=== PATIENT | male | born 1950 | race African-American/Black ===

== ENCOUNTER 2017-08-24 06:33 | Day surgery (SDC) | payer MEDICARE, MEDICAID ==
[~2017-08-24] VITALS: Ht 172.7 cm; Wt 59.9 kg
[2017-08-24] VITALS (8 sets, daily range): BP systolic 136–158; BP diastolic 81–92
[~2017-08-24 06:33] MED LIST: DILANTIN100 MG ORAL; GABAPENTIN300 MG ORAL; IMITREX50 MG ORAL; PRILOSEC10 M1 ORAL; PSEUDOEPHEDRINE60 MG PO; TRAMADOL HCL50 MG ORAL
[2017-08-24] MEDS ORDERED: Lidocaine 1% 10mg/ml/Epi 0.005mg/ml 30ml vial INJ ONE (07:02)
[2017-08-24] MEDS ORDERED: ceFAZolin sod 2 GM in NS 55 ML IVPB ONE (07:15)
[2017-08-24] MEDS ORDERED: LR 1000ml 1,000 ML IVLG SCH (07:19)
--- NOTE | 2017-08-24 07:19 | Anethesia Preoperative Eval ---
Anesthesia Pre-op PMH/ROS General Date of Evaluation: Aug 24, 2017 Anesthesiologist: Kd ASA Score: ASA 2 Mallampati Score Class I : Soft palate, uvula, fauces, pillars visible Class II: Soft palate, uvula, fauces visible Class III: Soft palate, base of uvula visible Class IV: Only hard plate visible Mallampati Classification: Class II Surgeon: Saadia Diagnosis: Left little finger ganglion cyst Surgical Procedure: Left little finger ganglion cyst excision Anesthesia History: none Family History: no anesthesia problems Allergies: Coded Allergies: No Known Allergies (Unverified , 08/23/17) Medications: see eMAR Past Medical History Cardiovascular: Denies: HTN, CAD, ME, valve dz, arrhythmia, other Pulmonary: Denies: asthma, COPD, ZOHAIB, other Gastrointestinal/Genitourinary: Denies: GERD, CRI, ESRD, other Neurologic/Psychiatric: Reports: other - h/o seizures and migraines, Denies: dementia, CVA, depression/anxiety, TIA Endocrine: Denies: DM, hypothyroidism, steroids, other HEENT: Denies: cataract (L), cataract (R), glaucoma, CHILKOOT (L), CHILKOOT (R), other Hematology/Immune: Denies: anemia, DVT, bleeding disorder, other Musculoskeletal/Integumentary: Denies: OA, RA, DJD, DDD, edema, other PSxH Narrative: Denies Anesthesia Pre-op Phys. Exam Physician Exam Last Vital Signs Date Time Temp Pulse Resp B/P (MAP) Pulse Ox O2 Delivery O2 Flow Rate FiO2 08/24/17 06:57 97.2 62 18 148/83 95 Room Air Constitutional: NAD Cardiovascular: RRR Respiratory: CTA Airway Exam Mallampati Score: Class II MO: full ROM: full Teeth: intact Anesthesia Pre-op A/P Labs see chart Studies Pre-op Studies: EKG - sr Risk Assessment & Plan Assessment: ASA II Plan: MAC Status Change Before Surgery: No Pre-Antibiotics Drug: Ancef 1g Given Within 1 Hr of Incision: Yes Time Given: 07:35 KRISTEN EUCEDA M.D. Aug 24, 2017 07:19
--- NOTE | 2017-08-24 07:19 | Immediate Post-Op Evaluation ---
Immediate Post-Op Evalulation Immediate Post-Op Evalulation Procedure: Left little finger gangliion cyst excision Date of Evaluation: Aug 24, 2017 Time of Evaluation: 08:16 IV Fluids: 500 Blood Products: 0 Estimated Blood Loss: min Urinary Output: 0 Blood Pressure Systolic: 136 Blood Pressure Diastolic: 81 Pulse Rate: 68 Respiratory Rate: 16 O2 Sat by Pulse Oximetry: 100 Temperature (Fahrenheit): 98.6 Pain Score (1-10): 0 Nausea: No Vomiting: No Complications 0 Patient Status: awake, reacts, patent, none Hydration Status: adequate Drug: Ancef 1g Given Within 1 Hr of Incision: Yes Time Given: 07:35 KRISTEN EUCEDA M.D. Aug 24, 2017 07:19
[2017-08-24] MEDS ORDERED: Lidocaine 1% MPF 10mg/ml 5ml ONE (07:30)
[2017-08-24] MEDS ORDERED: Sterile Water Irrig 1000ml IRRIG ONE (07:30)
[2017-08-24] MEDS ORDERED: Ketorolac 30mg Inj IV PRN (07:30)
[2017-08-24] MEDS ORDERED: DiphenhydrAMINE 50mg/ml Inj IVP PRN (07:30)
[2017-08-24] MEDS ORDERED: fentaNYL 100 mcg/2 mL IV ONE (07:30)
[2017-08-24] MEDS ORDERED: Hydromorphone 0.5mg/0.5ml inj IVP PRN (07:30)
[2017-08-24] MEDS ORDERED: Midazolam 2mg/2ml Inj ONE (07:30)
[2017-08-24] MEDS ORDERED: NS Irrig 1000ml ONE (07:30)
[2017-08-24] MEDS ORDERED: Midazolam 2mg/2ml Inj IVP PRN (07:30)
[2017-08-24] MEDS ORDERED: LR 1000ml ONE (07:30)
[2017-08-24] MEDS ORDERED: fentaNYL 100 mcg/2 mL IV PRN (07:30)
[2017-08-24] MEDS ORDERED: Propofol 200mg/20ml IV ONE (07:30)
--- NOTE | 2017-08-24 07:34 | Pre-Procedure Note/Attestation ---
Pre-Procedure Note/Attestation Complete Prior to Procedure Planned Procedure: left Procedure Narrative: leftmiddle finger cyst excision Indications for Procedure Pre-Operative Diagnosis: left middle finger cyst Attestation I attest that I discussed the nature of the procedure; its benefits; risks and complications; and alternatives (and the risks and benefits of such alternatives ), prior to the procedure, with the patient (or the patient's legal brand representative). I attest that, if there was a reasonable possibility of needing a blood transfusion, the patient (or the patient's legal brand representative) was given the [facility] standardized written summary, pursuant to the [place] Blood Safety Act ([place] Health and Safety Code # 1645, as amended). I attest that I re-evaluated the patient just prior to the surgery and that there has been no change in the patient's H&P, except as documented below: Tello Zee Aug 24, 2017 07:34
--- NOTE | 2017-08-24 08:11 | Brief Operative Note ---
Immediate Post Operative Note Operative Note Pre-op Diagnosis: left middle finger cyst Procedure: excision of left middle finger cyst Post-op Diagnosis: left middle finger sebaceous cyst Surgeon: estuardo Anesthesiologist: dinesh Anesthesia: local, MAC Specimen: yes - left middle finger cyst Complications: none Condition: stable Fluids: see records Estimated Blood Loss: minimal Drains: none Implant(s) used?: No Tello Zee Aug 24, 2017 08:11
--- NOTE | 2017-08-24 08:12 | 48 Hour Post Anesthesia Eval ---
Post Anesthesia Evaluation Procedure: Left little finger gangliion cyst excision Date of Evaluation: Aug 24, 2017 Airway: patent Nausea: No Vomiting: No Pain Intensity: 0 Hydration Status: adequate Cardiopulmonary Status: at baseline Mental Status/LOC: patient returned to baseline Post-Anesthesia Complications: 0 Follow-up care needed: ready to discharge KRISTEN EUCEDA M.D. Aug 24, 2017 08:12
[2017-08-24] MEDS ORDERED: D5 1/2NS 1,000 ML IV SCH (14:00)
[2017-08-24] MEDS ORDERED: Tylenol #3 tab (300mg/30mg) ORAL PRN (14:00)
[2017-08-24] MEDS ORDERED: Norco 5mg/325mg tab ORAL PRN (14:00)
[2017-08-24] MEDS ORDERED: HYDROmorphone 1mg/ml Carpuject SUBQ PRN (14:00)
--- NOTE | 2017-08-26 12:55 | Operative Note - Dictated ---
DATE OF OPERATION: 08/24/2017 PREOPERATIVE DIAGNOSIS: Left hand middle finger cyst. POSTOPERATIVE DIAGNOSIS: Left hand middle finger proximal phalanx palmar aspect 1.5 to 2 cm cyst. PROCEDURE PERFORMED: Excision of left hand middle finger proximal phalanx cyst. ATTENDING SURGEON: Tello Zee M.D. TELEPHONIC CASE MANAGER: None. ANESTHESIOLOGIST: Dr. Yi. ANESTHESIA: Local plus MAC. ESTIMATED BLOOD LOSS: Minimal. IV FLUIDS: Please see anesthesia records. SPECIMENS: Cyst, sent to pathology for review. COMPLICATIONS: None. WOUND CLASSIFICATION: Class 1. COUNT: Sponge and needle count correct x2. ANTIBIOTICS: A 2 g Ancef IV given 1 hour prior to cut time. INDICATIONS FOR PROCEDURE: The patient is a 67-year-old male, who was seen prior in Dr. Zee's office for evaluation of a growing cyst on his left hand middle finger proximal phalanx palmar aspect that was approximately 1.5 to 2 cm in size. The patient states that he first noticed it approximately two to three months ago and it has grown and become uncomfortable causing him discomfort and decreased range of motion of that finger. He tells me he cannot use the hand properly. After evaluation, he was noted to have a moderate sized 1.5 to 2 cm cyst in his palmar aspect of his middle finger proximal phalanx. Excision was indicated and recommended. Risks, benefits, and alternatives were discussed with the patient in detail. The patient consented to surgery, which was performed today. OPERATIVE NOTE: The patient was taken to the operating room and placed on the operating table in supine position with bilateral arms out. All bony prominences were well padded with pads. SCDs were placed. Preoperative time-out was taken identifying the patient, procedure, operative staff, and surgical staff. The patient was made comfortable by the anesthesiologist with monitoring. The left hand was then prepped and draped in the standard surgical fashion. Preoperatively, 2 g of Ancef IV were given one hour prior to cut time. The left hand middle finger was exposed and the cyst was identified with preoperative markings present. Local anesthetic was infiltrated for the patient's comfort during and post procedure. A fresh #15 blade was used to make a incision directly over the apex of the cyst. Using gentle dissection, the cyst was carefully dissected out. Entry to the cyst capsule was made during the procedure and contents were evacuated. There was no pus or signs of infection. Contents were mucinous/sebacious in nature and no active infection around the cyst or subcutaneous tissues. The cyst capsule was dissected circumferentially and was noted to be attached to the tendon sheath at portions of the digit. The cyst was carefully dissected off and excised in whole and sent to pathology for review. Following this, no other abnormalities were noted. The wound was then irrigated with copious amounts of sterile saline. Hemostasis was achieved with electrocautery. At this time, no other abnormalities were noted and conclusion of the case began with closing of the skin incision using 4-0 interrupted nylon sutures. Sterile dressings were applied. The patient tolerated the procedure well and was taken to the postanesthetic care unit in stable condition and discharged home soon after. Operative findings were discussed with the patient's family member prior to discharge. No immediate postoperative complications were noted. All postoperative wound care instructions were given to the patient upon discharge. Tello Zee M.D. DR: SALAZAR JOB#: [id number] CC: SAUL
== END 2017-08-24 10:00 | disposition home or self-care (01) ==
LOC: SUR 06:33
DX: R22.32 Localized swelling, mass and lump, left upper limb (principal); L72.0 Epidermal cyst; G40.909 Epilepsy, unspecified, not intractable, without status epilepticus
CPT/HCPCS: 11422; J0690; J2250; J2704; J3010; J7120; 94003; 94150